=== PATIENT | female | born 1945 | race Caucasian/White ===

== ENCOUNTER 2016-08-13 09:43 | Emergency (ER) | payer MEDICARE ==
[~2016-08-13] VITALS: Ht 162.6 cm; Wt 99.8 kg
[2016-08-13 09:50] VITALS: BP_SYST 107
[2016-08-13] MEDS ORDERED: ONDANSETRON HCL 4 MG/2 ML VIAL IVP ONE (10:00)
[2016-08-13] MEDS ORDERED: MORPHINE 2 MG/ML INJ. SYRINGE IVP ONE ×2 (10:00→11:45)
[2016-08-13 10:15] LABS: HEMATOCRIT 39.3 % (36-48); HEMOGLOBIN 12.7 g/dL (12.0-16.0); MEAN CORPUSCULAR HEMOGLOBIN 30 pg (27-31); MEAN CORPUSCULAR HGB CONC 32 % (32-36); MEAN CORPUSCULAR VOLUME 93 fL (79.0-98.0); PLATELET COUNT (AUTO) 212 K/uL (130-430); RED BLOOD CELL COUNT(AUTO) 4.24 MIL/uL (4.2-6.2); RED CELL DISTRIBUTION WIDTH 13.3 % (9.0-15.0)
[2016-08-13 10:23] LABS: ANION GAP 8 (5-15); CALCIUM 8.9 mg/dL (8.4-11.0); CHLORIDE 99 mmol/L (98-107); CREATININE 1.61 mg/dL (0.55-1.30); GLUCOSE 256 mg/dL (70-99); POTASSIUM 4.6 mmol/L (3.5-5.1); SODIUM SERUM 132 mmol/L (136-145); UREA NITROGEN, BLOOD 36 mg/dL (8-21)
[2016-08-13 10:24] LABS: PROTHROMBIN TIME 10.9 SECS (9.5-12.5)
[2016-08-13 10:27] LABS: ALANINE AMINOTRANSFERASE 35 U/L (12-78); ALBUMIN 3.2 g/dL (3.4-4.8); ASPARTATE AMINOTRANSFERASE 38 U/L (10-37); CREATINE KINASE, TOTAL 367 U/L (26-192); TOTAL BILIRUBIN 0.7 mg/dL (0.0-1.0); TOTAL PROTEIN, SERUM 8.3 g/dL (6.4-8.3)
[2016-08-13 10:35] LABS: ATYPICAL LYMPHOCYTES % 0 % (0-0); BAND % (MANUAL) 6 % (0-6); BASOPHILS % (MANUAL) 0 % (0-2); EOSINOPHILS % (MANUAL) 0 % (0-7); LYMPHOCYTES % (MANUAL) 7 % (20-46); MONOCYTES % (MANUAL) 2 % (0-11)
[2016-08-13 10:50] LABS: CREATINE KINASE MB 3.5 ng/mL (0-3.6)
[2016-08-13] MEDS ORDERED: NACL 0.9% 1,000 ML IV SCH (12:20)
[2016-08-13] MEDS ORDERED: VANCOMYCIN HCL 1,000 MG in NS 250 ML IV ONE (12:30)
[2016-08-13 13:20] LABS: BILIRUBIN,URINE NEGATIVE (NEGATIVE); BLOOD, URINE 2+ (NEGATIVE); CLARITY/URINE SL HAZY (CLEAR); COLOR,URINE YELLOW (YELLOW); GLUCOSE,URINE NEGATIVE (NEGATIVE); KETONES,URINE TRACE (NEGATIVE); LEUKOCYTE ESTERASE ,URINE 2+ (NEGATIVE); NITRITE, URINE POSITIVE (NEGATIVE); PROTEIN URINE TRACE (NEGATIVE); UROBILINOGEN,URINE 0.2 (0.2-1.0)
[2016-08-13 13:30] LABS: BACTERIA,URINE MODERATE /HPF (None Seen); WBC,URINE 20-50 /HPF (0-3)
[2016-08-13 13:31] LABS: MUCUS,URINE 2+ /LPF (None Seen)
[2016-08-13] MEDS ORDERED: VANCOMYCIN HCL 1000 MG/VIAL IV ONE (13:37)
[2016-08-13] MEDS ORDERED: NACL 0.9% 1,000 ML IV ONE (14:00)
[2016-08-13 15:45] VITALS: BP_SYST 107
== END 2016-08-13 15:45 | disposition short-term general hospital (02) ==
LOC: SED 09:43
DX: A41.9 Sepsis, unspecified organism (principal); N39.0 Urinary tract infection, site not specified; M54.2 Cervicalgia; M25.511 Pain in right shoulder; M25.512 Pain in left shoulder; M25.562 Pain in left knee; M25.561 Pain in right knee; E11.29 Type 2 diabetes mellitus with other diabetic kidney complication; N28.9 Disorder of kidney and ureter, unspecified; I10 Essential (primary) hypertension; Z88.1 Allergy status to other antibiotic agents; Z88.2 Allergy status to sulfonamides; W19.XXXA Unspecified fall, initial encounter; Y93.01 Activity, walking, marching and hiking; Y92.091 Bathroom in other non-institutional residence as the place of occurrence of the external cause; Y99.8 Other external cause status
CPT/HCPCS: 29505; 36415; 71010; 72125; 72131; 73030; 73564; 74176; 80053; 81000; 82550; 82553; 83605; 84484; 85007; 85027; 85610; 85730; 87040; 87086; 87186; 93005; 96365; 96366; 96368; 96375; 96376; 99285; J1956; J2270; J2405; J3370; J7030